=== PATIENT | male | born 1950 | race Caucasian/White ===

== ENCOUNTER 2017-04-27 07:44 | Day surgery (SDC) | payer MEDICARE, OTHER ==
[2017-04-27] MEDS ORDERED: FENTAnyl 50 MCG/ML VIAL (09:57)
[2017-04-27] MEDS ORDERED: MIDAZOLAM 1 MG/ML 2 ML INJ ×2 (09:57)
== END 2017-04-27 17:10 | disposition home or self-care (01) ==
LOC: GIL 07:44
DX: D12.2 Benign neoplasm of ascending colon (principal); D12.5 Benign neoplasm of sigmoid colon; K64.8 Other hemorrhoids; I10 Essential (primary) hypertension; E11.9 Type 2 diabetes mellitus without complications
CPT/HCPCS: 45385; 82962; 88305